=== PATIENT | female | born 1970 | race Two or more races ===

== ENCOUNTER 2023-09-02 20:07 | Emergency (ER) | payer OTHER ==
[~2023-09-02] VITALS: Ht 167.6 cm; Wt 101.6 kg
[2023-09-02] MEDS ORDERED: OZEMPIC0.25 MG/02 (20:28)
[2023-09-02] MEDS ORDERED: CRESTOR5 MG (20:28)
[2023-09-02] MEDS ORDERED: LOSARTAN-HCTZ1 EAC1 (20:28)
[2023-09-02] MEDS ORDERED: GUAIFENESIN 200 MG/10 ML BLIST.PACK PO STA (21:05)
[2023-09-02 21:47] LABS: HEMATOCRIT 37.4 % (36.0-45.00); HEMOGLOBIN 12.7 g/dL (12.0-15.00); MEAN CELL VOLUME 78.4 fL (80.00-100.00); MEAN CORPUSCULAR HEMOGLOBIN 26.6 pg (27.00-32.0); MEAN CORPUSCULAR HGB CONC 33.9 g/dl (32.0-36.0); PLATELET COUNT 147 K/uL (150-450); RED BLOOD COUNT 4.77 M/uL (4.00-6.00); RED CELL DISTRIBUTION WIDTH 15.1 % (11.5-14.5)
[2023-09-02] MEDS ORDERED: AZITHROMYCIN 500 MG TABLET PO STA (22:23)
[2023-09-02] MEDS ORDERED: KETOROLAC TROMETHAMINE 30 MG VIAL IM STA (22:24)
== END 2023-09-02 22:36 | disposition home or self-care (01) ==
LOC: ER 20:08
PROVIDERS: General Practice
DX: J06.9 Acute upper respiratory infection, unspecified (principal); E11.9 Type 2 diabetes mellitus without complications; Z79.84 Long term (current) use of oral hypoglycemic drugs; I10 Essential (primary) hypertension; Z20.822 Contact with and (suspected) exposure to COVID-19

== ENCOUNTER 2023-09-05 13:03 | Emergency (ER) | payer OTHER ==
[~2023-09-05] VITALS: Ht 167.6 cm; Wt 97.1 kg
[~2023-09-05 13:03] MED LIST: CRESTOR5 MG; LOSARTAN-HCTZ1 EAC1; OZEMPIC0.25 MG/02
[2023-09-05] MEDS ORDERED: 0.9 % SODIUM CHLORIDE 500 ML IV ONE (16:00)
[2023-09-05] MEDS ORDERED: ACETAMINOPHEN 500 MG GEL..CAP PO ONE (16:15)
[2023-09-05] MEDS ORDERED: ONDANSETRON HCL 2 MG/ML VIAL IV ONE (16:15)
[2023-09-05] MEDS ORDERED: KETOROLAC TROMETHAMINE 30 MG VIAL IV ONE (16:15)
[2023-09-05 17:22] LABS: HEMOGLOBIN 13.9 g/dL (12.0-15.00); MEAN CELL VOLUME 78.7 fL (80.00-100.00); MEAN CORPUSCULAR HEMOGLOBIN 26.7 pg (27.00-32.0); MEAN CORPUSCULAR HGB CONC 33.9 g/dl (32.0-36.0); RED CELL DISTRIBUTION WIDTH 14.9 % (11.5-14.5)
[2023-09-05 17:29] LABS: AMYLASE 68 U/L (25-115); LIPASE 61 U/L (13-75)
[2023-09-05 17:32] LABS: PLATELET COUNT 106 K/uL (150-450)
[2023-09-05 17:34] LABS: ALBUMIN 3.9 gm/dL (3.4-5.0); BILIRUBIN TOTAL 0.59 mg/dL (0.3-1.2); CALCIUM 8.8 mg/dL (8.5-10.1); CREATININE SERUM 1.08 mg/dL (0.55-1.02); GFR 52.87; GLOBULINA 4.8 G/DL (2.4-3.5); POTASSIUM 3.89 mEq/L (3.5-5.1); TOTAL PROTEIN 8.7 gm/dL (6.4-8.2)
[2023-09-05 17:36] LABS: INR 1.11; PARTIAL THROMBOPLASTIN TIME 32.8 SECONDS (22.0-34.0); PROTHROMBIN TIME 11.6 SECONDS (9.0-11.5)
[2023-09-05 18:52] LABS: PH,URINE 5.5 (5.0-8.0); URINE APPEARANCE Cloudy; URINE BILIRRUBIN Negative (NEGATIVE); URINE BLOOD Negative; URINE COLOR Dark Yellow; URINE GLUCOSE Negative (NEGATIVE); URINE LEUKOCYTE Negative; URINE NITRATE Negative
[2023-09-05 18:53] LABS: URINE BACTERIA 5423.9 uL (0.0-1933); URINE RBC 26.5 uL (0.0-20.8); URINE WBC 21.6 uL (0.0-23.2)
[2023-09-05 19:14] LABS: URINE MUCUS SCANT; URINE PROTEIN 100 (NEGATIVE)
[2023-09-05 19:15] LABS: URINE CRYSTALS FEW /HPF
[2023-09-05] MEDS ORDERED: PEPCID AC20 MG PO (21:24)
[2023-09-05] MEDS ORDERED: ONDANSETRON ODT4 MG SL (21:24)
[2023-09-06 00:03] LABS: ABG PH 7.462 (7.35-7.45); ABG PO2 88.9 mmHg (80-100); ABG pCO2 28.9 mmHg (35-45)
[2023-09-06 00:04] LABS: BASE EXCESS -2.2 mmol/l; BICARBONATE 20.2 mmol/l (23-25); Tco2 21.1 mmol/l; allen test SATISFACTORY; o2 21 %; puncture site RADIAL RIGHT
[2023-09-06 00:05] LABS: SaO2 97.3 %
== END 2023-09-05 22:07 ==
LOC: ER 13:03
PROVIDERS: Nurse Practitioner Family
DX: B34.9 Viral infection, unspecified (principal); A92.8 Other specified mosquito-borne viral fevers; R53.81 Other malaise; Z20.822 Contact with and (suspected) exposure to COVID-19; I10 Essential (primary) hypertension; E11.9 Type 2 diabetes mellitus without complications; E78.49 Other hyperlipidemia